=== PATIENT | female | born 1990 | race Caucasian/White ===

== ENCOUNTER → 2023-10-14 | Outpatient (CLI) | payer BC | LOC: PET 09:00 | PROVIDERS: ATTEND Internal Medicine Hematology & Oncology | DX: C81.01 Nodular lymphocyte predominant Hodgkin lymphoma, lymph nodes of head, face, and neck (principal); C83.81 Other non-follicular lymphoma, lymph nodes of head, face, and neck | CPT/HCPCS: 78815; A9552 ==

== ENCOUNTER 2023-12-14 09:01 | Outpatient (CLI) | payer BC | END 2023-12-14 09:02 | disposition home or self-care (01) | LOC: BICCT 09:01 | PROVIDERS: ATTEND Internal Medicine Hematology & Oncology | DX: C81.01 Nodular lymphocyte predominant Hodgkin lymphoma, lymph nodes of head, face, and neck (principal); C83.81 Other non-follicular lymphoma, lymph nodes of head, face, and neck | CPT/HCPCS: 71260; 74177 ==

== ENCOUNTER → 2024-02-16 | Outpatient (CLI) | payer BC | LOC: PET 11:45 | PROVIDERS: ATTEND Internal Medicine Hematology & Oncology | DX: C81.01 Nodular lymphocyte predominant Hodgkin lymphoma, lymph nodes of head, face, and neck (principal); C83.81 Other non-follicular lymphoma, lymph nodes of head, face, and neck | CPT/HCPCS: 78815; A9552 ==

== ENCOUNTER 2024-04-20 09:57 | Outpatient (CLI) | payer BC | END 2024-04-20 09:58 | disposition home or self-care (01) | LOC: BICCT 09:57 | PROVIDERS: ATTEND Internal Medicine Hematology & Oncology | DX: C81.01 Nodular lymphocyte predominant Hodgkin lymphoma, lymph nodes of head, face, and neck (principal); K59.00 Constipation, unspecified | CPT/HCPCS: 71260; 74177 ==

== ENCOUNTER 2024-09-20 10:35 | Outpatient (CLI) | payer BC | END 2024-09-20 10:36 | disposition home or self-care (01) | LOC: BICCT 10:35 | PROVIDERS: ATTEND Family Medicine | DX: C81.01 Nodular lymphocyte predominant Hodgkin lymphoma, lymph nodes of head, face, and neck (principal); C83.81 Other non-follicular lymphoma, lymph nodes of head, face, and neck; J34.89 Other specified disorders of nose and nasal sinuses; R51.9 Headache, unspecified; R43.1 Parosmia | CPT/HCPCS: 71260; 74177 ==